=== PATIENT | female | born 1985 | race Caucasian/White ===

== ENCOUNTER 2018-01-08 09:10 | Emergency (ER) | payer OTHER, SELFPAY ==
[2018-01-08 09:11] VITALS: BP 137/69; PULSE 102; RESP 17; TEMP 37; O2SAT 100; BMI 29.1
--- NOTE | 2018-01-08 09:23 | RAD_ITS ---
XR Chest 2 Views INDICATION: GENERAL ILLNESS X 11 DAY[place]OUGH, CONGESTION COMPARISON: None FINDINGS: Heart size and pulmonary vascularity are within normal limits. The lungs are clear without evidence of airspace consolidation or pleural effusion. The osseous structures are grossly unremarkable. RAD/Chest PA and Lateral IMPRESSION: No radiographic evidence of acute intrathoracic disease. at 0951 Reported and signed by: Jessica Byrd MD Electronically Signed: Jessica Byrd MD at 8:49 EDT Tel , Service support ,
--- NOTE | 2018-01-08 09:27 | ED.DCSUM_ITS ---
- ER Visit Summary Date of Service: 01/08/18 Chief Complaint: Cough, congestion, sore throat History of Present Illness: The patient is a 32 F who reports being ill for the past 12 days. She states her illness started out with fever, body aches, and congestion. Those symptoms have now progressed to cough and head congestion. Fevers resolved. She was seen at urgent care last week and placed on amoxicillin. She has had no improvement in her symptoms after 5 days on antibiotics. Patient states both ears feel clogged. Her daughter has been ill with similar symptoms. Physical Examination: Vital signs are unremarkable. Head and neck examination reveals moist mucous membranes. She has mild posterior pharyngeal drainage with no significant tonsillar enlargement. Uvula is midline. She does have hazy fluid behind both TMs. No significant cervical lymphadenopathy is noted. Heart is regular rate and rhythm. Lung sounds are clear. Abdomen is soft nontender. Test Results: Two-view chest x-ray per my reading reveals no focal infiltrate. Emergency Department Course and Treatment: Patient is given Sudafed and Afrin. I did explain to her that her symptoms are viral in nature. I recommended using a decongestant to help decrease the fluid behind her TMs. Patient will continue supportive care. Treatment Plan: [] Disposition: Discharge Impression: Viral URI This note was generated with [employer] dictation software. It may contain incorrect words, spelling, and punctuation that were not noted in review of the chart prior to signing ED Disposition - Plan for ED Patient: Chief Complaint: Cold Sx Referrals: Jasmin French MD [Primary Care Provider] -
[2018-01-08] MEDS: Oxymetazoline 0.05% 1 SPRAY SPRAY.BTL 2 SPRAY NASAL (09:28)
--- NOTE | 2018-01-08 09:44 | ED.DEP ---
ED Disposition - Plan for ED Patient: Disposition: Home or Assisted Living Chief Complaint: Cold Sx Instructions: ED URI Viral Referrals: Jasmin French MD [Primary Care Provider] - 10-14 Days if not better
== END 2018-01-08 09:52 | disposition home or self-care (01) ==
PROVIDERS: Emergency Provider Emergency Medicine; Family Provider Internal Medicine; PCP Internal Medicine
DX: J06.9 Acute upper respiratory infection, unspecified (principal); F32.9 Major depressive disorder, single episode, unspecified; Z72.0 Tobacco use
CPT/HCPCS: 71046; 99283

== ENCOUNTER 2024-09-27 05:55 | Day surgery (SDC) | payer OTHER, SELFPAY ==
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
[2024-09-27] VITALS (9 sets, daily range): BP systolic 104–114; BP diastolic 64–96; PULSE 60–111; RESP 16–18; TEMP 36.4–36.6; O2SAT 94–100; BMI 29.6
[2024-09-27] MEDS: 0.9% Normal Saline (1000mL) 1,000 ML 15 ML IV (06:18)
[2024-09-27] MEDS: Ketorolac 30 MG/ML Syringe IV (06:18)
[2024-09-27] MEDS: Acetaminophen 500 MG Tablet 1000 MG PO (06:18)
[2024-09-27 06:23] LABS: Internal QC Validated? YES +Cl - CLEAR BKGD; Pregnancy, Urine Negative Negative
--- NOTE | 2024-09-27 06:35 | PCM.PRE.AN2 ---
ASA Classification* ASA Classification ASA Classification: 2 Assessment & Plan Anesthesia* Anesthesia Assessment Anesthesia Assessment: Discussed sedation and/or anesthesia options, risks, benefits, and alternatives with patient/parents/legal guardian/POA. Questions invited. The patient/parents/legal guardian/POA seems to understand and agrees to proceed with anesthesia plan. Reviewed the physical assessment, medical history, allergy history and patient home medications list prior to surgery/procedure/anesthetic and documented any changes. Performed airway and anesthesia risk assessments. Anesthesia Type Anesthesia Type: General History Source History Obtained from:: Patient and Chart Anesthesia Focused Assessment* Temperature: 97.8 F Pulse Rate: 71 Blood Pressure: 113/78 Respiratory Rate: 16 Pulse Ox: 100 Oxygen Delivery Method: Room Air Airway Assessment Mouth opens: >3 cm Mallampati Score: I Teeth Condition: Missing (Patient has 1 missing tooth right upper molar #4.) Neck Range of motion (ROM): Full ROM Focused Labs Anesthesia Preop lab: CBC WBC 10.6 K/mm3 (4.4-11.0) 10/31/14 11:35 RBC 4.13 M/mm3 (4.2-5.4) L 10/31/14 11:35 Hgb 12.5 g/dl (12.0-15.0) 10/31/14 11:35 Hct 36.5 % (37-47) L 10/31/14 11:35 Plt Count 219 K/mm3 (150-450) 10/31/14 11:35 CHEMISTRY Creatinine 0.8 mg/dL (0.6-1.0) 10/25/14 06:05 COAG PT 11.9 SECONDS (11.7-14.9) 10/25/14 06:05 Urine Test Negative Negative 09/27/24 06:15 Pre-Assessment Diagnosis/Proposed Procedure Planned Operative Procedure(s): LAP SALPINGECTOMY Anesthesia History Anesthesia History - installer molding and trim: Anesthesia History - installer molding and trim Hx Hospitalization No 09/24/24 15:48 Any Problems With Anesthesia No 09/24/24 15:48 Cholinesterase deficiency No 09/24/24 15:48 You/Your Family Experience No 09/24/24 15:48 fever (hyperthermia) with Relationship Recent Exposure to Contagious No 09/27/24 06:16 Disease Does patient have nerve No 09/24/24 15:48 stimulator Patient instructed to have device shut off --Does patient have Pacemaker No 09/27/24 06:16 or ICD? When Was Last Pacemaker Check QUESTION #4 FULL TEXT: You/Your Family Experience fever (hyperthermia) with Anesthesia Last Oral Intake Last Oral intake: Last Oral Intake NPO since 22:00 09/27/24 06:16 Meds taken in AM with sips of water? Meds patient instructed to take am of surgery PONV PONV - installer molding and trim: PONV - installer molding and trim Female Yes 09/24/24 15:48 HX of Motion Sickness No 09/24/24 15:48 HX of N/V After Surgery No 09/24/24 15:48 Non-Smoker Yes 09/24/24 15:48 Duration of Surgery greater No 09/24/24 15:48 than 60 minutes Number of Risk Factors 2 09/24/24 15:48 PONV Score Moderate Risk 09/24/24 15:48 Height & Weight Height & Weight: Anesthesia: Height & Weight Height 5 ft 4 in 09/27/24 06:16 Weight: 78.4 kg 09/27/24 06:16 Body Mass Index (BMI) 29.6 09/27/24 06:16 Respiratory Assessment Respiratory Assessment - installer molding and trim: Respiratory Tract Infection Hx - installer molding and trim Hx Respiratory Tract Infection No 09/24/24 15:48 STOP Sleep Apnea STOP Sleep Apnea - installer molding and trim: STOP Sleep Apnea - installer molding and trim Hx Hypertension No 09/24/24 15:48 Hx Sleep Apnea No 09/24/24 15:48 CPAP BIPAP Do you snore loudly (louder No 09/24/24 15:48 than talking or can be heard Do you often feel tired/ Yes 09/24/24 15:48 fatigued/ sleepy during daytime? Has anyone observed you stop No 09/24/24 15:48 breathing during sleep? STOP Results Negative 09/24/24 15:48 QUESTION #5 FULL TEXT : Do you snore loudly (louder than talking or can be heard through closed doors)? Tobacco Use History Tobacco Use History - installer molding and trim: Tobacco Use History - installer molding and trim Tobacco Use Smoking Status Former smoker 09/24/24 15:48 Hx Tobacco Use No 09/24/24 15:48 Years Smoking Packs Smoked per Day Smoking Cessation Date was Yes - quit smoking within 15 09/24/24 15:48 within the last 15 years years Hx Smoking Cessation Date 07/11/24 09/24/24 15:48 Hx Smoking Cessation No 09/24/24 15:48 Counseling Hematologic Medial History Hematologic Hx - installer molding and trim: Hematologic Medical Hx - plate and weld inspector Hx of Blood Transfusion No 09/24/24 15:48 Hx of Transfusion in last 3 No 09/24/24 15:48 Months Date of Last Transfusion (if within last 3 months) Ever experience any problems No 09/24/24 15:48 with transfusion(s)? Specify any problems Hx of Preganancy in last 3 No 09/24/24 15:48 Months Nurse Filling Out Transfusion DSCHRIBER 09/24/24 15:48 & Questions: Date: 09/24/24 09/24/24 15:48 Time: 15:49 09/24/24 15:48 Patient unable to answer at this time (ie. confused, unrespo /Reproduction History /Reproductive History - installer molding and trim: /Reproductive Hx- installer molding and trim Hx Now No 09/24/24 15:48 Gestational Age (in weeks): EDC: Hx Hx Para Hx Section SAB No 09/24/24 15:48 Active Medications Active Medications: Current Medications Generic Name Dose Route Start Last Admin Trade Name Freq PRN Reason Stop Dose Admin Acetaminophen 1,000 mg 09/27/24 07:30 09/27/24 06:18 Acetaminophen 500 Mg Tablet PO 09/27/24 07:31 1,000 mg PREOP ONE Administration Sodium Chloride 1,000 mls @ 15 mls/hr 09/27/24 06:05 09/27/24 06:18 IV 10/02/24 19:24 15 mls/hr .Q48H CLAY Administration Protocol Ketorolac Tromethamine 30 mg 09/27/24 07:30 09/27/24 06:18 Ketorolac 30 Mg/Ml Syringe IV 09/27/24 07:31 30 mg PREOP ONE Administration PFSH Medical History PCOS (polycystic ovarian syndrome) Depression Anxiety Marijuana use Alcohol use Anemia Shortness of breath on exertion Former smoker Hytbk-Nwwxazvwz-Ugafh syndrome Home Medications ?Medication ?Instructions ?Recorded ?Last Taken ?Type alprazolam 0.25 mg tablet 0.25 mg PO TID PRN PRN anxiety 07/24/24 Unknown History ibuprofen 400 mg tablet (IBU) 400 mg PO Q8H PRN PRN pain 07/24/24 Unknown History metformin 500 mg tablet,extended 500 mg PO DAILY 09/24/24 Unknown History release 24 hr Allergy/AdvReac Type Severity Reaction Status Date / Time No Known Allergies Allergy Verified 09/27/24 06:15 Surgical History Hx of tonsillectomy History of cardiac catheterization Social History Smoking Status: Former smoker Review of Systems (Anesthesia) ROS Narrative System reviewed and no additional complaints, except as documented.
[2024-09-27 06:37] LABS: Hematocrit 39.5 % (37-47); Hemoglobin 13.4 g/dL (12.0-15.0); Mean Corp Hgb Conc 33.9 g/dL (32-36); Mean Corpuscular Hgb 29.4 pg (27.0-32.0); Mean Corpuscular Volume 86.6 fL (81-99); Mean Platelet Vol. 9.4 fl (6.2-12.0); Platelet Count 287 K/mm3 (150-450); RBC Distribution Width CV 12.6 % (11.6-14.6); RBC Distribution Width SD 39.7 fl (35.1-43.9); Red Blood Count 4.56 M/mm3 (4.2-5.4)
--- NOTE | 2024-09-27 07:30 | FALS_PTH ---
PATIENT: MATI FRANCISCO LOC: [facility] [place] U#:[id number] AGE/SX: 39/F ROOM: RE09/27/[address]: Dr. Pili Rodriguez MD : 1985 BED: DIS: 09/27/2024 SPEC #: [id number] RECD: 09/27/24 08:53 STATUS: MARC REQ #: [id number] TARA: 09/27/24 07:[address]: Pili Rodriguez DEPT: SURGICAL PATHOLOGY RECD BY: Larry Guardado ENTERED: 09/27/24 10:36 SP TYPE: FALL TUBES OTHR DR: Dr. Jasmin rFench MD Tissues: Fallopian tube Procedures: Surgery Specimen Level II HEADER OPERATION: Laparoscopic salpingectomy PRE-OP DIAGNOSIS: Sterilization TISSUE SUBMITTED: Bilateral fallopian tubes MICROSCOPIC DIAGNOSIS Right and left fallopian tubes, bilateral salpingectomies: Complete cross-sections of fallopian tubes with no pathologic change. AM: mr 09/28/2024 MICROSCOPIC DESCRIPTION Slides are reviewed. GROSS DESCRIPTION Received in fixative is one container labeled with the patient's name and designated bilateral fallopian tubes. The specimen consists of bilateral fallopian tubes including fimbrial ends measuring 5.5 cm in length and 0.6 cm in diameter and 5.0cm in length and 0.5cm in diameter. The fallopian tubes are not identified as right or left. Sections reveal unremarkable cut surfaces. Pediatric Intensive Physician sections are submitted in two cassettes with each cassette containing one fallopian tube. / SACHA: 09/27/2024 TC:4 CPT: 36327 x2
[2024-09-27] MEDS: Bupivacaine Mpf 0.5% 30 ML VIAL (07:50)
--- NOTE | 2024-09-27 08:22 | PCM.DC ---
Discharge Instructions Diet Discharge Diet: No restrictions (Increase fluid intake for the next 48 hours.) DC O2, CPAP, BIPAP needs Home O2 Discharge instructions: No Dressing / Incision Return to work on:: 10/01/24 May shower in (days): 1 May resume sexual activity in: 1-2 weeks Additional Activity Instructions:: Ambulate often the next week after surgery. Nothing in the vagina for 5 days. Dressing / Incision Call your doctor if your incision/area has: Continuous Slow Oozing, Sudden Increased Bleeding, Increased Pain/ Swelling, Increased Redness and Foul Smelling Discharge Call your doctor if you observe: Fever of 101 or Higher Cleanse incision/area with: Soap & Water (Leave the skin glue on for 7-10 days) Follow Up Care Please Follow Up With: Pili Rodriguez MD When: You do not need a postop appointment Call [phone] or send a [employer] message for questions or concerns. Test Results: Test results from this visit will be discussed in further detail at your follow-up appointment, if applicable. Discharge Plan Admission Attending Provider: Pili Rodriguez Primary Care Provider: Jasmin French Instructions Print Language: Sammarinese Discharge Orders/Prescriptions Prescriptions: No Action metformin 500 mg tablet extended release 24 hr 500 mg PO DAILY ibuprofen [IBU] 400 mg tablet 400 mg PO Q8H PRN PRN (Reason: pain) alprazolam 0.25 mg tablet 0.25 mg PO TID PRN PRN (Reason: anxiety) Referrals / Follow Up: Jasmin French MD [Primary Care Provider] - Disposition Disposition (needs filled in before D/C Order can be placed): Home, Self Care
--- NOTE | 2024-09-27 08:24 | OP.PCM_ITS ---
Problems Associated Problem List Diagnoses (1) Sterilization: Operative Report (Standard) Operative Information Date of Procedure: 09/27/24 Pre-Operative Diagnosis: sterilization request Post-Operative Diagnosis: same Surgery/Procedure Performed: laparoscopic bilateral salpinectomy process safety engineer: No Type of Anesthesia: General RN Documented Start/Stop Times: Operation Date: 09/27/24 07:30 Case Time Into Pre-Op 09/27/24 06:04 Out of Pre-Op 09/27/24 07:28 Anesthesia Start 09/27/24 07:30 Into Room 09/27/24 07:30 Procedure Start 09/27/24 07:50 Procedure End 09/27/24 08:15 Procedure Start Time: 07:50 Procedure Stop Time: 08:15 Select all DRAINS/GRAFTS/IMPLANTS that apply: None Special Medications: none Estimated Blood Loss: 10 Fluids Replaced: 700 Specimen collected: Yes Description of specimen(s) removed: bilateral fallopian tubes Description of surgery: The patient was taken to the operating room where she was prepped and draped in the dorsolithotomy position. A weighted speculum was placed in the vagina and the anterior lip of the cervix was grasped with a tenaculum. The Gabi uterine manipulator was placed and the remainder of the instruments were removed from the vagina. Attention was turned to the abdomen. All port sites were infiltrated with 0.5% Marcaine before skin incisions were made. A 5 mm intraumbilical incision was made. The anterior abdominal wall was tented up with 2 towel clamps while a 5 m m blade less trocar and sleeve were directly inserted with the support.. Intraperitoneal placement was confirmed with the laparoscope. The pneumoperitoneum was created and the underlying abdominal contents were intact. The patient was placed in Trendelenburg. Right and left lower quadrant ports were placed under direct visualization lateral to the inferior epigastric vessels. The bowel was swept away and the above findings were noted. The Enseal device was used to clamp seal and transect the antimesenteric portions of the right tube to the cornual insertion of the uterus. The tube was amputated from the uterus and the pedicles were all confirmed to be hemostatic. The same procedure was performed on the contralateral side. The specimens were brought out through a 5 mm port. The pedicles were again examined and found to be hemostatic. The lateral ports were removed under direct visualization and no active bleeding was noted. The pneumoperitoneum was released. The skin incisions were closed with Monocryl suture in a subcuticular fashion and skin glue . The vaginal instruments were removed and the vaginal sweep was completed by me. The procedure was performed by me with assistance other than as dictated above. All sponge and needle counts were correct and the patient was taken to the recovery room in stable condition. Surgical Findings: normal cervix and vagina and uterus and tubes Complications Complications: No Admit VTE Documentation VTE Present on Admission: No VTE Mechan Device Prophylaxis: [facility] VTE Pharm Prophylaxis ordered?: No
--- NOTE | 2024-09-27 08:45 | PCM.POST.ANE ---
Anesthesia: Postop Eval I Current Vital Signs Temperature: 97.7 F Pulse Rate: 109 Blood Pressure: 114/92 Respiratory Rate: 16 Pulse Ox: 97 Oxygen Delivery Method: Room Air Assessment Airway patent: Yes Spontaneous unlabored respirations: Yes Mental status: Awake and Calm nausea: No Vomiting: No Anesthesia Complication: No Fluid Hydration Crystalloid volume administer (ml): 700 Total IV fluid infused: 700 Progress Note Anesthesia document: Postop Eval 1 completed: Yes
--- NOTE | 2024-09-28 07:30 | POSTOPAN2_ITS ---
Anesthesia Postop Eval I Sum Postop Eval Completion status Anesthesia document: Postop Eval 1 completed: Yes Anesthesia Postop Eval I Summary Anesthesia Postop Eval I Summary: Anesthesia Postop Eval I: Assessment Summary Airway patent Yes 09/27/24 08:46 [email or web address] Spontaneous unlabored Yes 09/27/24 08:46 [email or web address] [email or web address] respirations Mental status Awake,Calm 09/27/24 08:46 [email or web address] [email or web address] nausea No 09/27/24 08:46 FEEDLOT [email or web address] Vomiting No 09/27/24 08:46 FEEDLOT [email or web address] Anesthesia Postop Eval I: Fluid Summary Crystalloid volume administer 700 09/27/24 08:46 FEEDLOT MANAGER.MDOT (ml) Colloids volume administered ( ml) Blood Product volume administered (ml) Total IV fluid infused 700 09/27/24 08:46 FEEDLOT [email or web address] Anesthesia Postop Eval I: Summary Notes Anesthesia Complication No 09/27/24 08:46 FEEDLOT [email or web address] Anesthesia Complication Comment: Post-operative progress note Anesthesia: Postop Eval II Evaluation Mental status: Awake Pain Level: 0 nausea: No Vomiting: No
--- NOTE | 2024-09-28 07:30 | PCM.POSTANE2 ---
Anesthesia Postop Eval I Sum Postop Eval Completion status Anesthesia document: Postop Eval 1 completed: Yes Anesthesia Postop Eval I Summary Anesthesia Postop Eval I Summary: Anesthesia Postop Eval I: Assessment Summary Airway patent Yes 09/27/24 08:46 SIX HORSE HITCH [email or web address] Spontaneous unlabored Yes 09/27/24 08:46 SIX HORSE HITCH DRIVER.MDOT respirations Mental status Awake,Calm 09/27/24 08:46 SIX HORSE HITCH DRIVER.MDOT nausea No 09/27/24 08:46 SIX HORSE HITCH DRIVER.MDOT Vomiting No 09/27/24 08:46 SIX HORSE HITCH DRIVER.MDOT Anesthesia Postop Eval I: Fluid Summary Crystalloid volume administer 700 09/27/24 08:46 SIX HORSE HITCH DRIVER.MDOT (ml) Colloids volume administered ( ml) Blood Product volume administered (ml) Total IV fluid infused 700 09/27/24 08:46 SIX HORSE HITCH DRIVER.MDOT Anesthesia Postop Eval I: Summary Notes Anesthesia Complication No 09/27/24 08:46 SIX HORSE HITCH DRIVER.MDOT Anesthesia Complication Comment: Post-operative progress note Anesthesia: Postop Eval II Evaluation Mental status: Awake Pain Level: 0 nausea: No Vomiting: No
== END 2024-09-27 09:39 | disposition home or self-care (01) ==
LOC: SDC 05:58 → AC 05:59
PROVIDERS: Anesthesiology; PCP Internal Medicine; Referring Provider Obstetrics & Gynecology; Visit Provider Obstetrics & Gynecology
PROC: (CPT 58661; principal; 2024-09-27 07:15)
DX: Z30.2 Encounter for sterilization (principal); Z87.891 Personal history of nicotine dependence; Z79.84 Long term (current) use of oral hypoglycemic drugs
CPT/HCPCS: 58661; 00840; 81025; 85027; 88302; J2405